=== PATIENT | female | born 1940 | race Caucasian/White ===

== ENCOUNTER 2021-12-19 02:09 | Inpatient (IN) | payer MEDICARE ==
[~2021-12-19] VITALS: Ht 165.1 cm; Wt 102.1 kg
[2021-12-19] MEDS ORDERED: ONDANSETRON HCL INJ 2MG/ML 2ML 2 MG/ML VIAL IV STA (03:01)
[2021-12-19] MEDS ORDERED: DICYCLOMINE HCL 20 MG/2 ML VIAL IM ONE (03:15)
[2021-12-19] MEDS ORDERED: ACETAMINOPHEN 325 MG TAB PO ONE (03:15)
[2021-12-19] MEDS ORDERED: SODIUM CHLORIDE 0.9% 1000ML 1,000 ML IV ONE (03:15)
[2021-12-19 04:23] LABS: BASOPHILS # (AUTO) 0.1 (0.0-0.1); BASOPHILS % 0.4 % (0.0-1.0); EOSINOPHILS # (AUTO) 0.1 (0.0-0.4); EOSINOPHILS % 0.7 % (0.0-6.0); HEMATOCRIT 45.4 % (34.2-44.1); HEMOGLOBIN 14.7 g/dL (12.0-16.0); LYMPHOCYTES # (AUTO) 0.7 (1.0-3.2); LYMPHOCYTES % 5.9 % (18.0-39.1); MEAN CORPUSCULAR HEMOGLOBIN 30.2 pg (28-32); MEAN CORPUSCULAR HGB CONC 32.4 g/dL (31-35); MEAN CORPUSCULAR VOLUME 93.2 fL (81-99); MONOCYTES # (AUTO) 0.4 (0.2-0.8); MONOCYTES % 3.6 % (4.4-11.3); NEUTROPHILS % 88.9 % (38.7-80.0); PLATELET COUNT 222 x10e3/uL (140-360); RED BLOOD COUNT 4.87 x10e6/uL (3.6-5.1); RED CELL DISTRIBUTION WIDTH 13.7 % (11.7-14.4)
[2021-12-19 04:44] LABS: ALBUMIN 3.4 g/dL (3.5-5.0); ANION GAP 15.4 mmol/L (8-16); CALCIUM 9.4 mg/dL (8.4-10.2); CREATININE, SERUM 0.99 mg/dL (0.57-1.11); POTASSIUM 3.4 mmol/L (3.5-5.1)
[2021-12-19] MEDS ORDERED: IOPAMIDOL 370 MG/ML 100 ML INFUS..BTL INJ ONE (05:03)
[2021-12-19 06:29] LABS: CLARITY,URINE CLOUDY (CLEAR); COLOR,URINE YELLOW (YELLOW)
[2021-12-19 06:30] LABS: KETONES,URINE 2+ (NEGATIVE); LEUKOCYTE ESTERASE ,URINE NEGATIVE (NEGATIVE); NITRITE,URINE NEGATIVE (NEGATIVE); PROTEIN,URINE DIPSTICK TRACE (NEGATIVE); URINE UROBILINOGEN 0.2 mg/dL (0.2 - 1)
[2021-12-19 06:48] LABS: RBC,URINE 0-5 /HPF (0-5); WBC,URINE (MAN) 0-5 /HPF (0-5)
[2021-12-19 06:49] LABS: BACTERIA,URINE FEW /HPF; EPITHELIAL CELLS,URINE FEW /LPF
[2021-12-19] MEDS ORDERED: DICYCLOMINE HCL 20 MG/2 ML VIAL IM PRN (09:30)
[2021-12-19] MEDS ORDERED: ONDANSETRON HCL INJ 2MG/ML 2ML 2 MG/ML VIAL IV PRN (09:30)
[2021-12-19] MEDS: SODIUM CHLORIDE 0.9% 1000ML 1,000 ML IV SCH ×2 (10:00→17:30)
[2021-12-19 12:30] VITALS: BP 141/53
[2021-12-19] MEDS ORDERED: METOPROLOL SUCC50 MG PO (13:26)
[2021-12-19] MEDS ORDERED: AMLODIPINE BESYL5 MG PO (13:26)
[2021-12-19] MEDS ORDERED: PEPCID20 MG PO (13:26)
[2021-12-19] MEDS ORDERED: VITAMIN D325 MCG PO (13:26)
[2021-12-19 14:01] VITALS: BP 141/53
[2021-12-19 14:12] VITALS: BP 141/53
[2021-12-19 14:29] LABS: CREATINE KINASE 28 IU/L (29-168)
[2021-12-19 15:46] VITALS: BP 126/62
[2021-12-19 20:00] VITALS: BP 130/63
[2021-12-19 20:30] VITALS: BP 130/63
[2021-12-20] VITALS (7 sets, daily range): BP systolic 112–141; BP diastolic 56–78
[2021-12-20] MEDS ORDERED: HYDRALAZINE HCL 20 MG/ML VIAL IV PRN
[2021-12-20] MEDS ORDERED: ACETAMINOPHEN 1000 MG/100 ML IV PRN
[2021-12-20] MEDS ORDERED: HYDROMORPHONE 1MG/1ML 50ML SYR IV PRN
[2021-12-20] MEDS ORDERED: KETOROLAC TROMETHAMINE 30 MG/ML VIAL IV PRN
[2021-12-20] MEDS: SODIUM CHLORIDE 0.9% 1000ML 1,000 ML IV SCH ×3 (00:26→17:18)
[2021-12-20 06:12] LABS: BASOPHILS % 0.4 % (0.0-1.0); EOSINOPHILS # (AUTO) 0.3 (0.0-0.4); EOSINOPHILS % 2.7 % (0.0-6.0); HEMATOCRIT 41.1 % (34.2-44.1); HEMOGLOBIN 12.9 g/dL (12.0-16.0); LYMPHOCYTES # (AUTO) 0.8 (1.0-3.2); LYMPHOCYTES % 9.2 % (18.0-39.1); MEAN CORPUSCULAR HEMOGLOBIN 30.6 pg (28-32); MEAN CORPUSCULAR HGB CONC 31.4 g/dL (31-35); MEAN CORPUSCULAR VOLUME 97.4 fL (81-99); MONOCYTES # (AUTO) 0.6 (0.2-0.8); NEUTROPHILS # (AUTO) 7.4 (2.1-6.9); NEUTROPHILS % 81.3 % (38.7-80.0); PLATELET COUNT 159 x10e3/uL (140-360); RED BLOOD COUNT 4.22 x10e6/uL (3.6-5.1); RED CELL DISTRIBUTION WIDTH 14.1 % (11.7-14.4)
[2021-12-20 06:43] LABS: ALBUMIN 2.8 g/dL (3.5-5.0); ANION GAP 19.6 mmol/L (8-16); CALCIUM 8.4 mg/dL (8.4-10.2); CREATININE, SERUM 0.83 mg/dL (0.57-1.11); POTASSIUM 3.6 mmol/L (3.5-5.1)
[2021-12-20 07:31] LABS: CREATINE KINASE MB 1.5 ng/mL (0-5.0)
[2021-12-20 15:17] LABS: CREATINE KINASE MB 2.1 ng/mL (0-5.0)
[2021-12-21] VITALS (8 sets, daily range): BP systolic 101–145; BP diastolic 57–84
[2021-12-21] MEDS: SODIUM CHLORIDE 0.9% 1000ML 1,000 ML IV SCH ×4 (05:50→20:35)
[2021-12-21 07:33] LABS: ALBUMIN 3.2 g/dL (3.5-5.0); ANION GAP 20.5 mmol/L (8-16); CALCIUM 8.6 mg/dL (8.4-10.2); CREATININE, SERUM 0.83 mg/dL (0.57-1.11); POTASSIUM 3.5 mmol/L (3.5-5.1)
[2021-12-22] VITALS (9 sets, daily range): BP systolic 119–137; BP diastolic 60–92
[2021-12-22] MEDS: SODIUM CHLORIDE 0.9% 1000ML 1,000 ML IV SCH ×2 (09:44→20:20)
[2021-12-22] MEDS ORDERED: BUPIVACAINE 0.25% 30ML SDV ONE (11:20)
[2021-12-22] MEDS ORDERED: SUGAMMADEX SODIUM 200 MG/2 ML VIAL IV ONE (12:07)
[2021-12-22] MEDS ORDERED: LIDOCAINE HCL 2% LOCAL INJ 5 ML SDV VIAL INJ ONE (12:07)
[2021-12-22] MEDS ORDERED: PROPOFOL IV EMULSION 10 MG/ML 20 ML VIAL ONE (12:07)
[2021-12-22] MEDS ORDERED: ONDANSETRON HCL INJ 2MG/ML 2ML 2 MG/ML VIAL ONE (12:07)
[2021-12-22] MEDS ORDERED: POVIDONE IODINE 0.05% 0.05 % ML PO ONE (12:07)
[2021-12-22] MEDS ORDERED: ACETAMINOPHEN 1000 MG/100 ML IV ONE (12:07)
[2021-12-22] MEDS ORDERED: DEXAMETHASONE SOD PHOS INJ 4 MG/ML SDV ONE (12:07)
[2021-12-22] MEDS ORDERED: SEVOFLURANE INHAL SOLN 250 ML PEN BTL ONE (12:07)
[2021-12-22] MEDS ORDERED: ROCURONIUM BROMIDE 10 MG/ML 5ML VIAL IV ONE (12:07)
[2021-12-22] MEDS ORDERED: FENTANYL CITRATE/PF 100MCG/2 ML INJ ONE ×2 (12:56→13:39)
[2021-12-22] MEDS ORDERED: ONDANSETRON HCL INJ 2MG/ML 2ML 2 MG/ML VIAL IV PRN (13:15)
[2021-12-22] MEDS ORDERED: HYDROMORPHONE 1MG/1ML INJ IV PRN (13:15)
[2021-12-22] MEDS: HYDROCODONE/APAP 5MG-325MG TAB PO PRN (14:34)
[2021-12-23] VITALS (8 sets, daily range): BP systolic 107–144; BP diastolic 54–95
[2021-12-23 06:13] LABS: BASOPHILS % 0.1 % (0.0-1.0); HEMOGLOBIN 12.8 g/dL (12.0-16.0); LYMPHOCYTES # (AUTO) 0.7 (1.0-3.2); MEAN CORPUSCULAR HEMOGLOBIN 30.5 pg (28-32); MEAN CORPUSCULAR VOLUME 95.5 fL (81-99); MONOCYTES # (AUTO) 0.2 (0.2-0.8); NEUTROPHILS # (AUTO) 7.2 (2.1-6.9); NEUTROPHILS % 88.8 % (38.7-80.0); PLATELET COUNT 185 x10e3/uL (140-360); RED BLOOD COUNT 4.19 x10e6/uL (3.6-5.1); RED CELL DISTRIBUTION WIDTH 14.2 % (11.7-14.4)
[2021-12-23 06:41] LABS: ANION GAP 11.7 mmol/L (8-16); CALCIUM 8.7 mg/dL (8.4-10.2); CREATININE, SERUM 0.82 mg/dL (0.57-1.11); POTASSIUM 3.7 mmol/L (3.5-5.1)
[2021-12-23 06:43] LABS: MAGNESIUM 1.8 MG/DL (1.3-2.1); PHOSPHORUS 2.4 MG/DL (2.3-4.7)
[2021-12-23] MEDS: HYDROCODONE/APAP 5MG-325MG TAB PO PRN (08:40)
[2021-12-23] MEDS: SODIUM CHLORIDE 0.9% 1000ML 1,000 ML IV SCH (09:11)
[2021-12-23 11:52] LABS: ALBUMIN 2.7 g/dL (3.5-5.0); BILIRUBIN,DIRECT 0.5 mg/dL (0.0-0.5)
[2021-12-24] VITALS: BP 119/73
[2021-12-24] MEDS: SODIUM CHLORIDE 0.9% 1000ML 1,000 ML IV SCH ×2 (00:29→12:19)
[2021-12-24 04:00] VITALS: BP 126/6
[2021-12-24 08:06] VITALS: BP 126/6
[2021-12-24 08:38] VITALS: BP 103/71
[2021-12-24 12:31] VITALS: BP 107/73
[2021-12-24 16:30] VITALS: BP 101/71
[2021-12-24] MEDS ORDERED: PANTOPRAZOLE SOD 40 MG TABEC PO SCH (18:00)
[2021-12-24] MEDS ORDERED: ONDANSETRON HCL 4 MG ORAL DISINTEGRATING TAB PO PRN (18:00)
== END 2021-12-24 18:17 | DRG 417 ==
LOC: ER 02:20 → ERHOLD 09:28 → MED/SURG3 12:15
PROVIDERS: ADMIT Internal Medicine; ATTEND Internal Medicine
PROC: 0FT44ZZ Resection of Gallbladder, Percutaneous Endoscopic Approach (ICD-10-PCS; principal; 2021-12-22 12:28)
DX: K80.00 Calculus of gallbladder with acute cholecystitis without obstruction (principal); K72.00 Acute and subacute hepatic failure without coma; K85.10 Biliary acute pancreatitis without necrosis or infection; K86.2 Cyst of pancreas; I10 Essential (primary) hypertension; E11.9 Type 2 diabetes mellitus without complications; K21.9 Gastro-esophageal reflux disease without esophagitis; E66.9 Obesity, unspecified; Z68.37 Body mass index [BMI] 37.0-37.9, adult; Z90.49 Acquired absence of other specified parts of digestive tract; Z88.5 Allergy status to narcotic agent; Z88.2 Allergy status to sulfonamides; Z90.710 Acquired absence of both cervix and uterus
CPT/HCPCS: 0223U; 36415; 74177; 74181; 76705; 80048; 80053; 80076; 81001; 82150; 82378; 82550; 82553; 83690; 83735; 84100; 84484; 85025; 86301; 88304; 93005; 94799; 96361; 99284; J0500; J1100; J2001; J2405; J2543; J3010; J7030; Q9967